=== PATIENT | female | born 1980 | race American Indian/Alaskan Native ===

== ENCOUNTER 2020-06-26 18:34 | Outpatient (CLI) | payer MEDICAID ==
[2020-06-26 19:06] VITALS: BP 97/54
[2020-06-26] MEDS ORDERED: LACTATED RINGERS 1,000 ML IV ONE (19:21)
[2020-06-26 21:07] LABS: Amphetamine Screen,Urine Negative; Benzodiazepines Screen,Urine Negative; Cannabinoid Screen,Urine Negative; Cocaine Screen,Urine Negative; Methadone Screen,Urine Negative; Opiate Screen,Urine Negative
[2020-06-26 21:18] LABS: Bilirubin,Urine NEG (Negative); Blood,Urine SM (Negative); Color,Urine Yellow (Yellow); Mucus,Urine 3+ /HPF; Urobilinogen,Urine < 2.0 mg/dL (<2.0)
== END 2020-06-26 21:50 | disposition home or self-care (01) ==
LOC: TRG 18:34 → APU 18:35 → TRG 21:50
PROVIDERS: ATTEND Obstetrics & Gynecology
DX: O62.9 Abnormality of forces of labor, unspecified (principal); Z3A.29 29 weeks gestation of pregnancy
CPT/HCPCS: 59025; 80307; 81001; 96360; J7120